=== PATIENT | female | born 1970 | race African-American/Black ===

== ENCOUNTER 2017-03-10 07:01 | Emergency (ER) | payer MEDICAID ==
[~2017-03-10] VITALS: Ht 165.1 cm; Wt 78.0 kg
[2017-03-10] MEDS ORDERED: KETOROLAC 60MG/2ML VIAL IM STA (07:56)
[2017-03-10 08:20] LABS: EOSINOPHILS % 1.8 % (0.0-5.0); HEMATOCRIT. 31.9 % (36.0-48.0); LYMPHOCYTES % 31.6 % (20.0-50.0); MEAN CORPUSCULAR HEMOGLOBIN 22.6 pg (28.0-32.0); MEAN CORPUSCULAR VOLUME 72.2 fL (81.0-99.0); MEAN PLATELET VOLUME 7.8 fl (7.4-10.4); MONOCYTES % 7.2 % (2.0-8.0); NEUTROPHILS % 58.4 % (40.0-76.0); PLATELET 404 x1000/uL (130-400); RED BLOOD CELL COUNT 4.42 mill/uL (4.2-5.4); RED CELL DISTRIBUTION WIDTH 16.2 % (11.6-14.6)
[2017-03-10 08:21] LABS: CLARITY URINE CLOUDY (CLEAR); COLOR URINE YELLOW (YELLOW); KETONES URINE NEGATIVE (NEGATIVE); LEUKOCYTE ESTERASE URINE 3+ (NEGATIVE); NITRITE URINE NEGATIVE (NEGATIVE); OCCULT BLOOD URINE 2+ (NEGATIVE); PH URINE 5.5 (4.5-8.0); PROTEIN URINE TRACE (NEGATIVE); SPECIFIC GRAVITY URINE 1.026 (1.005-1.030)
[2017-03-10 08:27] LABS: INR 1.1; PROTHROMBIN TIME 11.1 sec
[2017-03-10 08:35] LABS: CARBON DIOXIDE 29 mEq/L (21-32); CHLORIDE 103 mEq/L (98-107)
[2017-03-10 08:56] LABS: *AMPHETAMINES SCREEN URINE NEGATIVE (NEGATIVE); *BARBITURATES SCREEN URINE NEGATIVE (NEGATIVE); *BENZODIAZEPINES SCREEN URINE NEGATIVE (NEGATIVE); *COCAINE SCREEN URINE NEGATIVE (NEGATIVE); CANNABINOID URINE SCREEN NEGATIVE (NEGATIVE); METHADONE URINE SCREEN NEGATIVE (NEGATIVE); PHENCYCLIDINE URINE SCREEN NEGATIVE (NEGATIVE)
[2017-03-10 09:12] LABS: OPIATES URINE SCREEN PRESUMTIVE POSITIVE (NEGATIVE)
[2017-03-10 09:25] VITALS: BP 121/78
== END 2017-03-10 09:30 | disposition home or self-care (01) ==
LOC: ER 07:33
DX: N39.0 Urinary tract infection, site not specified (principal); I10 Essential (primary) hypertension; M19.90 Unspecified osteoarthritis, unspecified site; Z90.710 Acquired absence of both cervix and uterus
CPT/HCPCS: 36415; 80053; 80305; 81001; 81025; 83690; 85025; 85610; 96372; 99284; J1885; Z7610

== ENCOUNTER 2017-06-30 06:58 | Emergency (ER) | payer MEDICAID ==
[~2017-06-30] VITALS: Ht 165.1 cm; Wt 79.0 kg
[2017-06-30] MEDS ORDERED: KETOROLAC 60MG/2ML VIAL IM ONE (10:15)
[2017-06-30] MEDS ORDERED: HYDROCODONE/ACETAMINOPHEN 5/325MG TABLET PO ONE (10:15)
[2017-06-30 10:26] VITALS: BP 120/93
== END 2017-06-30 11:03 | disposition home or self-care (01) ==
LOC: ER 09:00
DX: M11.212 Other chondrocalcinosis, left shoulder (principal); I10 Essential (primary) hypertension; Z90.710 Acquired absence of both cervix and uterus
CPT/HCPCS: 73030; 96372; 99284; J1885

== ENCOUNTER 2018-04-09 05:47 | Emergency (ER) | payer MEDICAID ==
[~2018-04-09] VITALS: Ht 165.1 cm; Wt 79.0 kg
[2018-04-09] MEDS ORDERED: DIAZEPAM 5 MG TABLET PO ONE (07:00)
[2018-04-09 07:32] LABS: CLARITY URINE CLEAR (CLEAR); COLOR URINE YELLOW (YELLOW); KETONES URINE NEGATIVE (NEGATIVE); LEUKOCYTE ESTERASE URINE NEGATIVE (NEGATIVE); NITRITE URINE NEGATIVE (NEGATIVE); OCCULT BLOOD URINE NEGATIVE (NEGATIVE); PROTEIN URINE NEGATIVE (NEGATIVE); SPECIFIC GRAVITY URINE 1.025 (1.005-1.030)
[2018-04-09] MEDS ORDERED: MORPHINE SULFATE 10 MG/ML CPJ IM ONE (08:30)
[2018-04-09] MEDS ORDERED: IBUPROFEN 600MG TABLET PO ONE (08:30)
[2018-04-09 12:09] VITALS: BP 156/92
== END 2018-04-09 12:18 | disposition home or self-care (01) ==
LOC: ER 05:47
DX: M54.30 Sciatica, unspecified side (principal); M77.11 Lateral epicondylitis, right elbow; I10 Essential (primary) hypertension; Z90.710 Acquired absence of both cervix and uterus
CPT/HCPCS: 81003; 81025; 96372; 99283; J2270; Z7610

== ENCOUNTER 2018-05-15 13:47 | Emergency (ER) | payer MEDICAID ==
[~2018-05-15] VITALS: Ht 165.1 cm; Wt 78.0 kg
[2018-05-15] MEDS ORDERED: KETOROLAC 60MG/2ML VIAL IM ONE (14:45)
[2018-05-15] MEDS ORDERED: HYDROCODONE/ACETAMINOPHEN 5/325MG TABLET PO ONE (17:00)
[2018-05-15 17:05] VITALS: BP 132/76
== END 2018-05-15 17:32 | disposition home or self-care (01) ==
LOC: ER 14:56
DX: M43.16 Spondylolisthesis, lumbar region (principal); M54.42 Lumbago with sciatica, left side; M48.07 Spinal stenosis, lumbosacral region; I10 Essential (primary) hypertension; Z90.710 Acquired absence of both cervix and uterus; M79.605 Pain in left leg
CPT/HCPCS: 72100; 96372; 99284; J1885; Z7610

== ENCOUNTER 2022-11-30 13:30 | Emergency (ER) | payer MEDICAID ==
[~2022-11-30] VITALS: Ht 165.1 cm; Wt 81.0 kg
[2022-11-30 13:34] VITALS: BP 149/82
[2022-11-30] MEDS ORDERED: KETOROLAC 60MG/2ML VIAL IM ONE (16:45)
[2022-11-30] MEDS ORDERED: ACETAMINOPHEN 325MG TABLET PO ONE (16:45)
[2022-11-30] MEDS ORDERED: DICL75TA5 MT (18:32)
== END 2022-11-30 18:45 | disposition home or self-care (01) ==
LOC: ER 13:51
DX: M16.11 Unilateral primary osteoarthritis, right hip (principal); I10 Essential (primary) hypertension
CPT/HCPCS: 72192; 73502; 73552; 96372; 99285; J1885